=== PATIENT | male | born 1975 | race Caucasian/White ===

== ENCOUNTER 2018-04-08 04:38 | Inpatient (IN) | payer OTHER ==
[~2018-04-08] VITALS: Ht 154.9 cm; Wt 81.7 kg
[2018-04-08 05:10] LABS: APPEARANCE CLEAR ((CLEAR)); BILIRUBIN NEGATIVE; BLOOD NEGATIVE; COLOR YELLOW ((YELLOW)); GLUCOSE (STRIP) NEGATIVE; KETONES 5; LEUKOCYTES NEGATIVE; NITRITE NEGATIVE; PROTEIN (STRIP) NEGATIVE; SPECIFIC GRAVITY 1.016 (1.000-1.030); UCUL ADDED? NO; UROBILINOGEN 0.2 MG/DL (0.2-1.0)
[2018-04-08 05:37] LABS: HEMATOCRIT 43.3 % (38.0-50.0); HEMOGLOBIN 15.1 G/DL (12.5-16.6); MCH 33.9 PG (29.0-34.0); MCHC 34.9 G/DL (30.0-36.0); MCV 97.3 FL (86-99); PLATELET COUNT 175 K/uL (156-360); RBC DIS.WIDTH-CV 14.2 % (11.8-14.6); RBC DIS.WIDTH-SD 50.9 % (39-53); RED BLOOD COUNT 4.45 M/uL (4.00-5.50); WHITE BLOOD COUNT 6.6 K/uL (4.1-10.2)
[2018-04-08 05:52] LABS: ALBUMIN 4.2 g/dL (3.2-4.8); CHLORIDE 104 mEq/L (99-109); POTASSIUM 3.9 mEq/L (3.7-5.4); SODIUM 142 mEq/L (136-147)
[2018-04-08 05:54] LABS: GLUCOSE 99 mg/dL (70-99); TOTAL PROTEIN 6.9 g/dL (6.4-8.3)
[2018-04-08 05:56] LABS: TOTAL BILIRUBIN 0.3 mg/dL (0.0-1.0)
[2018-04-08 05:58] LABS: ALKALINE PHOSPHATASE 93 IU/L (3-129); CREATININE 0.9 mg/dL (0.6-1.3); GFR ESTIMATE (CALCULATED) > 59 mL/min/ (58.99-99999)
[2018-04-08 05:59] LABS: UREA NITROGEN (BUN) 10 mg/dL (9-23)
[2018-04-08 06:00] LABS: AST (GOT) 15 IU/L (2-34)
[2018-04-08 06:01] LABS: ALT (GPT) 15 IU/L (3-49); LIPASE 22 U/L (1.0-51.0)
[2018-04-08] MEDS ORDERED: ALIGN4 MG PO (11:47)
[2018-04-08] MEDS ORDERED: ACIDOPHILUS1 EAC3 PO (11:47)
[2018-04-08] MEDS ORDERED: DIVALPROEX SOD250 M1 PO (11:48)
[2018-04-08] MEDS ORDERED: DIVALPROEX SOD500 M1 PO ×2 (11:49→11:51)
[2018-04-08] MEDS ORDERED: DOCUSATE SODIU100 M1 PO (11:51)
[2018-04-08] MEDS ORDERED: FISH OIL 500 M1 EAC2 PO (11:51)
[2018-04-08] MEDS ORDERED: GRISEOFULVIN500 MG PO (11:52)
[2018-04-08] MEDS ORDERED: HYDROCORTISONE120 ML TP (11:53)
[2018-04-08] MEDS ORDERED: KETOCONAZOLE60 GM TP (11:54)
[2018-04-08] MEDS ORDERED: KETOCONAZOLE120 ML TP (11:55)
[2018-04-08] MEDS ORDERED: SIMVASTATIN40 MG PO (11:56)
[2018-04-08] MEDS ORDERED: AZELASTINE HCL6 ML BOTH EYES (11:57)
[2018-04-08] MEDS ORDERED: OMEPRAZOLE20 MG PO (11:57)
[2018-04-08] MEDS ORDERED: SUCRALFATE1 GM PO (11:58)
[2018-04-08] MEDS ORDERED: AQUAPHOR OINTM105 GM TP (11:59)
[2018-04-08] MEDS ORDERED: DESONIDE15 GM TP (11:59)
[2018-04-08] MEDS ORDERED: PROCTOZONE-HC30 GM PR (12:00)
[2018-04-08] MEDS ORDERED: ACETAMINOPHEN325 M1 PO (12:00)
[2018-04-08] MEDS ORDERED: ALLOPURINOL100 MG PO (12:01)
[2018-04-08] MEDS ORDERED: CALAMINE LOTIO120 ML TP (12:02)
[2018-04-08] MEDS ORDERED: ARTIFICIAL TEAR15 M1 BOTH EYES (12:02)
[2018-04-08] MEDS ORDERED: ALLERGY MEDICAT25 M1 PO (12:03)
[2018-04-08] MEDS ORDERED: DICYCLOMINE HCL20 MG PO (12:03)
[2018-04-08] MEDS ORDERED: ANUSOL HC,ANUCO25 MG PR (12:04)
[2018-04-08] MEDS ORDERED: LOPERAMIDE2 MG PO (12:05)
[2018-04-08] MEDS ORDERED: LORATADINE10 M2 PO (12:05)
[2018-04-08] MEDS ORDERED: IBUPROFEN600 MG PO (12:05)
[2018-04-08] MEDS ORDERED: MIRALAX255 GM PO (12:07)
[2018-04-08] MEDS ORDERED: TUSSIN COUGH &118 M1 PO (12:08)
[2018-04-08] MEDS ORDERED: HYDROCODON-ACE1 EAC7 PO (22:48)
[2018-04-09 00:06] VITALS: BP 120/70
[2018-04-09 03:40] VITALS: BP 115/53
[2018-04-09 08:14] VITALS: BP 105/55
[2018-04-09 11:49] VITALS: BP 104/55
[2018-04-09 15:38] VITALS: BP 92/50
[2018-04-09 19:10] VITALS: BP 130/57
[2018-04-10 00:14] VITALS: BP 107/56
[2018-04-10 03:31] VITALS: BP 122/60
[2018-04-10 08:26] VITALS: BP 1112/85
== END 2018-04-10 17:28 | disposition home or self-care (01) | DRG 988 ==
LOC: EME 04:38 → SDC 21:24 → 2SOUTH 22:24 → 2EAST 22:24 → 2SOUTH 22:24 → ENRESERV 22:42 → 2EAST 23:46
PROC: 0WUF0JZ Supplement Abdominal Wall with Synthetic Substitute, Open Approach (ICD-10-PCS; principal; 2018-04-08)
DX: R33.9 Retention of urine, unspecified (principal); K43.6 Other and unspecified ventral hernia with obstruction, without gangrene; K21.9 Gastro-esophageal reflux disease without esophagitis; E78.5 Hyperlipidemia, unspecified; F79 Unspecified intellectual disabilities; F39 Unspecified mood [affective] disorder; R45.4 Irritability and anger; M10.9 Gout, unspecified; G47.30 Sleep apnea, unspecified; E66.9 Obesity, unspecified; Z68.34 Body mass index [BMI] 34.0-34.9, adult; Q90.9 Down syndrome, unspecified
CPT/HCPCS: 74177; 80053; 81003; 83690; 85027; 93005; 94799; 99281; 99285; C1781; G0378; J0330; J0690; J1100; J1170; J2710; J3010; J7120; J7643; S0028

== ENCOUNTER 2018-04-16 04:14 | Emergency (ER) | payer OTHER ==
[~2018-04-16] VITALS: Ht 152.4 cm; Wt 77.2 kg
[~2018-04-16 04:14] MED LIST: ACETAMINOPHEN325 M1 PO; ACIDOPHILUS1 EAC3 PO; ALIGN4 MG PO; ALLERGY MEDICAT25 M1 PO; ALLOPURINOL100 MG PO; ANUSOL HC,ANUCO25 MG PR; AQUAPHOR OINTM105 GM TP; ARTIFICIAL TEAR15 M1 BOTH EYES; AZELASTINE HCL6 ML BOTH EYES; CALAMINE LOTIO120 ML TP; DESONIDE15 GM TP; DICYCLOMINE HCL20 MG PO; DIVALPROEX SOD250 M1 PO; DIVALPROEX SOD500 M1 PO; DOCUSATE SODIU100 M1 PO; FISH OIL 500 M1 EAC2 PO; GRISEOFULVIN500 MG PO; HYDROCODON-ACE1 EAC7 PO; HYDROCORTISONE120 ML TP; IBUPROFEN600 MG PO; KETOCONAZOLE120 ML TP; KETOCONAZOLE60 GM TP; LOPERAMIDE2 MG PO; LORATADINE10 M2 PO; MIRALAX255 GM PO; OMEPRAZOLE20 MG PO; PROCTOZONE-HC30 GM PR; SIMVASTATIN40 MG PO; SUCRALFATE1 GM PO; TUSSIN COUGH &118 M1 PO
[2018-04-16 05:28] LABS: MCH 34.5 PG (29.0-34.0); MCV 98.5 FL (86-99); PLATELET COUNT 201 K/uL (156-360); RBC DIS.WIDTH-CV 14.3 % (11.8-14.6); RBC DIS.WIDTH-SD 52.4 % (39-53); RED BLOOD COUNT 4.06 M/uL (4.00-5.50); WHITE BLOOD COUNT 7.8 K/uL (4.1-10.2)
[2018-04-16 05:53] LABS: ALBUMIN 3.6 g/dL (3.2-4.8)
[2018-04-16 05:54] LABS: CHLORIDE 105 mEq/L (99-109); POTASSIUM 3.3 mEq/L (3.7-5.4); SODIUM 142 mEq/L (136-147)
[2018-04-16 05:56] LABS: GLUCOSE 114 mg/dL (70-99); TOTAL PROTEIN 6.4 g/dL (6.4-8.3)
[2018-04-16 05:58] LABS: TOTAL BILIRUBIN 0.3 mg/dL (0.0-1.0)
[2018-04-16 05:59] LABS: ALKALINE PHOSPHATASE 85 IU/L (3-129); CREATININE 0.8 mg/dL (0.6-1.3); GFR ESTIMATE (CALCULATED) > 59 mL/min/ (58.99-99999)
[2018-04-16 06:01] LABS: AST (GOT) 12 IU/L (2-34); UREA NITROGEN (BUN) 16 mg/dL (9-23)
[2018-04-16 06:02] LABS: ALT (GPT) 17 IU/L (3-49)
[2018-04-16 06:03] LABS: LIPASE 28 U/L (1.0-51.0)
[2018-04-16 08:34] VITALS: BP 130/87
== END 2018-04-16 08:34 | disposition home or self-care (01) ==
LOC: EME → EDBD 04:14 → EDSEX 04:14 → EME 04:14
PROVIDERS: Emergency Medicine
DX: M96.841 Postprocedural hematoma of a musculoskeletal structure following other procedure (principal); E86.0 Dehydration; Y83.8 Other surgical procedures as the cause of abnormal reaction of the patient, or of later complication, without mention of misadventure at the time of the procedure; Z98.890 Other specified postprocedural states; K21.9 Gastro-esophageal reflux disease without esophagitis; F79 Unspecified intellectual disabilities; R56.9 Unspecified convulsions
CPT/HCPCS: 74177; 80053; 83605; 83690; 85027; 99281; 99284; J3010; J7030